=== PATIENT | male | born 1960 | race Caucasian/White ===

== ENCOUNTER → 2016-08-03 | Outpatient (CLI) | payer BC ==
[2016-08-03 08:50] LABS: CHOLESTEROL 139.29 mg/dL (0-200); Direct HDL 43 mg/dL (>40); TRIGLYCERIDES 133 mg/dL (<150)
[2016-08-03 09:00] LABS: DIRECT LDL 75 mg/dL (<100)
== END ==
LOC: OD 07:26
PROVIDERS: ATTEND Family Medicine Geriatric Medicine
DX: E11.9 Type 2 diabetes mellitus without complications (principal); E78.5 Hyperlipidemia, unspecified
CPT/HCPCS: 36415; 80061; 83036

== ENCOUNTER 2016-12-04 08:37 | Day surgery (SDC) | payer BC ==
[2016-12-04 08:55] LABS: HEMATOCRIT 49.9 % (37.9-51.0); HEMOGLOBIN 16.8 g/dL (13.5-17.0); HGB HCT DIFFERENCE 0.5; MEAN CORPUSCULAR HEMOGLOBIN 31.6 pg (27.0-33.4); MEAN CORPUSCULAR HGB CONC 33.6 g/dL (32.0-36.0); MEAN CORPUSCULAR VOLUME 94 fl (80-97); WHITE BLOOD COUNT 13.6 10^3/uL (4.0-10.5)
[2016-12-04 09:21] LABS: ANION GAP 12 (5-19); BLOOD UREA NITROGEN 10 mg/dL (7-20); CALCIUM 9.2 mg/dL (8.4-10.2); CARBON DIOXIDE 22 mmol/L (22-30); CHLORIDE 104 mmol/L (98-107); CREATININE RESULT 0.92 mg/dL (0.52-1.25); GLUCOSE 176 mg/dL (75-110); POTASSIUM 4.6 mmol/L (3.6-5.0); SODIUM 137.6 mmol/L (137-145)
[2016-12-04] MEDS ORDERED: ONDANSETRON HCL INJ/PF 4 MG/2 ML SDV ONE (10:57)
[2016-12-04] MEDS ORDERED: NALOXONE HCL INJ/PF 0.4 MG/1 ML SDV ONE (10:57)
[2016-12-04] MEDS ORDERED: FLUMAZENIL INJ 0.5 MG/5 ML VIAL IV ONE (10:58)
[2016-12-04] MEDS ORDERED: MIDAZOLAM 2 MG/2 ML INJ ONE (10:58)
[2016-12-04] MEDS ORDERED: GLUCAGON,HUMAN RECOMB 1 MG INJ ONE (10:59)
[2016-12-04] MEDS ORDERED: EPINEPHRINE INJ 1 MG/10 ML DISP.SYRIN ONE (10:59)
[2016-12-04] MEDS: MIDAZOLAM 2 MG/2 ML INJ ONE ×2 (11:00→11:04)
[2016-12-04] MEDS: FENTANYL CITRATE INJ/PF 100 MCG/2 ML AMPUL ONE ×2 (11:02→11:06)
--- NOTE | 2016-12-04 11:43 | Operative Report ---
Operative Report DATE OF SURGERY: 12/04/16 PREOPERATIVE DIAGNOSIS: History of colon polyp POSTOPERATIVE DIAGNOSIS: Right colon polyp OPERATION: Colonoscopy with snare polypectomy of right colon polyp SURGEON: LUNA GALVIN ANESTHESIA: Moderate Sedation TISSUE REMOVED OR ALTERED: right colon polyp COMPLICATIONS: None ESTIMATED BLOOD LOSS: Minimal INTRAOPERATIVE FINDINGS: half centimeter sessile polyp at the right colon four folds away from the cecum. PROCEDURE: Informed consent was obtained. Patient was brought to the endoscopy suite. IV sedation with Versed and fentanyl was administered. Digital rectal exam revealed no palpable perianal masses. Endoscope was passed via the patient's anus it was fed to the cecum. The bowel prep was good visualization was good. Cecum appeared normal. Four folds away from the cecum at the right colon there was 1/2 cm sessile polyp which was snare polypectomy and the specimen was retrieved. Remainder of the right colon transverse colon descending colon sigmoid colon and the rectum were all normal with the exception of scattered diverticuli on the left colon. Patient's colorectal anastomosis appeared well- healed. Patient tolerated procedure well with no apparent complications and was taken to the recovery area in stable condition. Assessment: right colon polyp status post snare polypectomy. Will follow up with the patient with the biopsy results.
--- NOTE | 2016-12-04 11:46 | PDOC DISCHARGE SUMMARY ---
Discharge Summary (SDC) - Discharge Final Diagnosis: Right colon Polyp Date of Surgery: 12/04/16 Discharge Date: 12/04/16 Condition: Good Forms: Sedation D/C Instructions, Discharge POC-Surgical Service Treatment or Instructions: Colonoscopy with polypectomy. May discharge patient home when met discharge criteria. Follow-up with me in 2 weeks. Hold Persantine for 5 days. May resume Persantine in 5 days if no bleeding per rectum. Referrals: LUNA GALVIN MD [ACTIVE STAFF] - 12/17/16 11:00 am Discharge Diet: As Tolerated Discharge Activity: Activity As Tolerated Report the Following to Your Physician Immediately: Increase in Pain, Unusual Bleeding
[2016-12-04 12:27] VITALS: BP 115/96
== END 2016-12-04 12:30 | disposition home or self-care (01) ==
LOC: END 08:37
PROVIDERS: ATTEND Surgery
PROC: 0DBF8ZX Excision of Right Large Intestine, Via Natural or Artificial Opening Endoscopic, Diagnostic (ICD-10-PCS; principal; 2016-12-04 10:30)
DX: D12.2 Benign neoplasm of ascending colon (principal); K57.30 Diverticulosis of large intestine without perforation or abscess without bleeding; Z80.0 Family history of malignant neoplasm of digestive organs; E11.9 Type 2 diabetes mellitus without complications; F17.210 Nicotine dependence, cigarettes, uncomplicated; Z79.82 Long term (current) use of aspirin; Z79.899 Other long term (current) drug therapy; Z79.84 Long term (current) use of oral hypoglycemic drugs; Z90.49 Acquired absence of other specified parts of digestive tract; Z85.828 Personal history of other malignant neoplasm of skin
CPT/HCPCS: 45385; 36415; 82962; 85027; 80048; 88305 ×2; J2250; J3010; J0171; J1610; J2310; J2405; J3490

== ENCOUNTER → 2017-02-01 | Outpatient (CLI) | payer BC ==
[2017-02-01 08:27] LABS: ABSOLUTE BASOPHILS # (AUTO) 0.1 10^3/uL (0.0-0.2); ABSOLUTE EOSINOPHILS # (AUTO) 0.3 10^3/uL (0.0-0.6); ABSOLUTE LYMPHOCYTES (AUTO) 2.8 10^3/uL (0.5-4.7); ABSOLUTE MONOCYTES (AUTO) 0.7 10^3/uL (0.1-1.4); ABSOLUTE NEUT (AUTO) 6.4 10^3/uL (1.7-8.2); BASOPHILS % (AUTO) 0.5 % (0-2); EOSINOPHILS % (AUTO) 2.6 % (0-6); HEMATOCRIT 46.5 % (37.9-51.0); HEMOGLOBIN 16.3 g/dL (13.5-17.0); HGB HCT DIFFERENCE 2.4; LYMPHOCYTES % (AUTO) 27.1 % (13-45); MEAN CORPUSCULAR HEMOGLOBIN 32.8 pg (27.0-33.4); MEAN CORPUSCULAR VOLUME 94 fl (80-97); MONOCYTES % (AUTO) 7.1 % (3-13); RED BLOOD COUNT 4.95 10^6/uL (4.35-5.55); RED CELL DISTRIBUTION WIDTH 12.5 % (11.5-14.0); SEGMENTED NEUTROPHILS % (AUTO) 62.7 % (42-78); WHITE BLOOD COUNT 10.2 10^3/uL (4.0-10.5)
[2017-02-01 08:58] LABS: ALANINE AMINOTRANSFERASE 23 U/L (21-72); ALBUMIN 3.9 g/dL (3.5-5.0); ALKALINE PHOSPHATASE 73 U/L (38-126); ANION GAP 10 (5-19); ASPARTATE AMINO TRANSFERASE 16 U/L (17-59); BILIRUBIN,DIRECT 0.4 mg/dL (0.0-0.4); BILIRUBIN,TOTAL 0.6 mg/dL (0.2-1.3); BLOOD UREA NITROGEN 14 mg/dL (7-20); CALCIUM 9.5 mg/dL (8.4-10.2); CARBON DIOXIDE 25 mmol/L (22-30); CHLORIDE 102 mmol/L (98-107); CHOLESTEROL 145.83 mg/dL (0-200); CREATININE RESULT 1.05 mg/dL (0.52-1.25); Direct HDL 45 mg/dL (>40); GLUCOSE 179 mg/dL (75-110); POTASSIUM 4.6 mmol/L (3.6-5.0); SODIUM 137.2 mmol/L (137-145); TOTAL PROTEIN 6.6 g/dL (6.3-8.2); TRIGLYCERIDES 164 mg/dL (<150)
[2017-02-01 09:08] LABS: DIRECT LDL 81 mg/dL (<100)
[2017-02-01 09:14] LABS: VLDL CHOLESTEROL 32.8 mg/dL (10-31)
[2017-02-02 15:37] LABS: CREATININE URINE 33.3 mg/dL (Not Estab.)
[2017-02-03 08:25] LABS: MICROALBUMIN URINE <3.0 ug/mL (Not Estab.)
== END ==
LOC: OD 07:19
PROVIDERS: ATTEND Family Medicine Geriatric Medicine
DX: E11.40 Type 2 diabetes mellitus with diabetic neuropathy, unspecified (principal); I10 Essential (primary) hypertension; E78.5 Hyperlipidemia, unspecified; Z79.899 Other long term (current) drug therapy
CPT/HCPCS: 36415; 80053; 80061; 82043; 82570; 83036; 84443; 85025

== ENCOUNTER → 2017-04-26 | Outpatient (CLI) | payer BC | LOC: OD 07:59 | PROVIDERS: ATTEND Family Medicine Geriatric Medicine | DX: E11.40 Type 2 diabetes mellitus with diabetic neuropathy, unspecified (principal); Z79.899 Other long term (current) drug therapy | CPT/HCPCS: 36415; 82607 ==

== ENCOUNTER → 2017-08-26 | Outpatient (CLI) | payer BC ==
[2017-08-26 08:29] LABS: ABSOLUTE EOSINOPHILS # (AUTO) 0.3 10^3/uL (0.0-0.6); ABSOLUTE LYMPHOCYTES (AUTO) 2.8 10^3/uL (0.5-4.7); ABSOLUTE MONOCYTES (AUTO) 0.7 10^3/uL (0.1-1.4); BASOPHILS % (AUTO) 0.5 % (0-2); EOSINOPHILS % (AUTO) 2.7 % (0-6); HEMATOCRIT 47.7 % (37.9-51.0); HEMOGLOBIN 16.1 g/dL (13.5-17.0); LYMPHOCYTES % (AUTO) 28.9 % (13-45); MEAN CORPUSCULAR HEMOGLOBIN 32.1 pg (27.0-33.4); MEAN CORPUSCULAR HGB CONC 33.8 g/dL (32.0-36.0); MEAN CORPUSCULAR VOLUME 95 fl (80-97); MONOCYTES % (AUTO) 6.7 % (3-13); PLATELET COUNT 267 10^3/uL (150-450); RED BLOOD COUNT 5.02 10^6/uL (4.35-5.55); SEGMENTED NEUTROPHILS % (AUTO) 61.2 % (42-78); TOTAL CELLS COUNTED % (AUTO) 100 %; WHITE BLOOD COUNT 9.9 10^3/uL (4.0-10.5)
[2017-08-26 08:59] LABS: ALANINE AMINOTRANSFERASE 26 U/L (21-72); ALBUMIN 4.1 g/dL (3.5-5.0); ALKALINE PHOSPHATASE 72 U/L (38-126); ANION GAP 10 (5-19); ASPARTATE AMINO TRANSFERASE 18 U/L (17-59); BILIRUBIN,DIRECT 0.4 mg/dL (0.0-0.4); BILIRUBIN,TOTAL 0.4 mg/dL (0.2-1.3); BLOOD UREA NITROGEN 15 mg/dL (7-20); CALCIUM 9.9 mg/dL (8.4-10.2); CARBON DIOXIDE 28 mmol/L (22-30); CHLORIDE 101 mmol/L (98-107); GLUCOSE 182 mg/dL (75-110); POTASSIUM 5.1 mmol/L (3.6-5.0); SODIUM 138.9 mmol/L (137-145); TOTAL PROTEIN 6.8 g/dL (6.3-8.2); TRIGLYCERIDES 151 mg/dL (<150)
[2017-08-26 09:10] LABS: DIRECT LDL 75 mg/dL (<100)
[2017-08-26 09:12] LABS: VLDL CHOLESTEROL 30.2 mg/dL (10-31)
[2017-08-27 13:39] LABS: CREATININE URINE 133.1 mg/dL (Not Estab.); MICROALBUMIN URINE <3.0 ug/mL (Not Estab.)
== END ==
LOC: OD 07:06
PROVIDERS: ATTEND Family Medicine Geriatric Medicine
DX: E11.40 Type 2 diabetes mellitus with diabetic neuropathy, unspecified (principal); I10 Essential (primary) hypertension; E78.5 Hyperlipidemia, unspecified; Z79.899 Other long term (current) drug therapy
CPT/HCPCS: 36415; 80053; 80061; 82043; 82570; 83036; 85025

== ENCOUNTER → 2017-09-04 | Outpatient (CLI) | payer BC ==
[2017-09-04 09:40] LABS: ALANINE AMINOTRANSFERASE 24 U/L (21-72); CHOLESTEROL 134.93 mg/dL (0-200); TRIGLYCERIDES 117 mg/dL (<150)
[2017-09-04 09:51] LABS: DIRECT LDL 68 mg/dL (<100)
== END ==
LOC: OD 07:43
PROVIDERS: ATTEND Family Medicine Geriatric Medicine
DX: E78.5 Hyperlipidemia, unspecified (principal); E11.40 Type 2 diabetes mellitus with diabetic neuropathy, unspecified; Z79.899 Other long term (current) drug therapy
CPT/HCPCS: 36415; 80061; 83036; 84460

== ENCOUNTER → 2017-10-25 | Outpatient (CLI) | payer BC ==
[2017-10-25 08:38] LABS: ALANINE AMINOTRANSFERASE 28 U/L (21-72); CHOLESTEROL 133.74 mg/dL (0-200); TRIGLYCERIDES 122 mg/dL (<150)
[2017-10-25 08:48] LABS: DIRECT LDL 66 mg/dL (<100)
== END ==
LOC: OD 07:36
PROVIDERS: ATTEND Family Medicine Geriatric Medicine
DX: E11.40 Type 2 diabetes mellitus with diabetic neuropathy, unspecified (principal); I10 Essential (primary) hypertension; E78.5 Hyperlipidemia, unspecified; Z29.9 Encounter for prophylactic measures, unspecified
CPT/HCPCS: 36415; 80061; 83036; 84460

== ENCOUNTER → 2017-12-23 | Outpatient (CLI) | payer BC ==
[2017-12-23 08:55] LABS: ANION GAP 12 (5-19); BLOOD UREA NITROGEN 15 mg/dL (7-20); CALCIUM 9.4 mg/dL (8.4-10.2); CARBON DIOXIDE 26 mmol/L (22-30); CHLORIDE 102 mmol/L (98-107); GLUCOSE 180 mg/dL (75-110); SODIUM 140.2 mmol/L (137-145)
== END ==
LOC: OD 07:23
PROVIDERS: ATTEND Family Medicine Geriatric Medicine
DX: I10 Essential (primary) hypertension (principal)
CPT/HCPCS: 36415; 80048

== ENCOUNTER → 2018-05-23 | Outpatient (CLI) | payer BC ==
[2018-05-23 08:05] LABS: ABSOLUTE BASOPHILS # (AUTO) 0.1 10^3/uL (0.0-0.2); ABSOLUTE EOSINOPHILS # (AUTO) 0.3 10^3/uL (0.0-0.6); ABSOLUTE LYMPHOCYTES (AUTO) 2.4 10^3/uL (0.5-4.7); ABSOLUTE MONOCYTES (AUTO) 0.6 10^3/uL (0.1-1.4); ABSOLUTE NEUT (AUTO) 5.5 10^3/uL (1.7-8.2); BASOPHILS % (AUTO) 0.7 % (0-2); HEMATOCRIT 46.3 % (37.9-51.0); HEMOGLOBIN 15.9 g/dL (13.5-17.0); LYMPHOCYTES % (AUTO) 27.2 % (13-45); MEAN CORPUSCULAR HEMOGLOBIN 32.2 pg (27.0-33.4); MEAN CORPUSCULAR HGB CONC 34.4 g/dL (32.0-36.0); MEAN CORPUSCULAR VOLUME 93 fl (80-97); MONOCYTES % (AUTO) 6.5 % (3-13); PLATELET COUNT 253 10^3/uL (150-450); RED BLOOD COUNT 4.96 10^6/uL (4.35-5.55); RED CELL DISTRIBUTION WIDTH 12.9 % (11.5-14.0); SEGMENTED NEUTROPHILS % (AUTO) 62.6 % (42-78); TOTAL CELLS COUNTED % (AUTO) 100 %; WHITE BLOOD COUNT 8.8 10^3/uL (4.0-10.5)
[2018-05-23 08:29] LABS: ALANINE AMINOTRANSFERASE 20 U/L (21-72); ANION GAP 11 (5-19); BLOOD UREA NITROGEN 16 mg/dL (7-20); CALCIUM 9.2 mg/dL (8.4-10.2); CARBON DIOXIDE 23 mmol/L (22-30); CHLORIDE 104 mmol/L (98-107); GLUCOSE 193 mg/dL (75-110); POTASSIUM 4.5 mmol/L (3.6-5.0); SODIUM 137.8 mmol/L (137-145); TRIGLYCERIDES 165 mg/dL (<150)
[2018-05-23 08:40] LABS: DIRECT LDL 88 mg/dL (<100)
[2018-05-24 16:37] LABS: CREATININE URINE 118.9 mg/dL (Not Estab.); MICROALBUMIN URINE <3.0 ug/mL (Not Estab.)
== END ==
LOC: OD 07:15
PROVIDERS: ATTEND Family Medicine Geriatric Medicine
DX: E78.5 Hyperlipidemia, unspecified (principal); E11.9 Type 2 diabetes mellitus without complications; I10 Essential (primary) hypertension; Z79.899 Other long term (current) drug therapy
CPT/HCPCS: 36415; 80048; 80061; 82043; 82570; 83036; 84460; 85025

== ENCOUNTER → 2018-08-22 | Outpatient (CLI) | payer BC ==
[2018-08-22 09:26] LABS: ALANINE AMINOTRANSFERASE 21 U/L (21-72); CHOLESTEROL 128.77 mg/dL (0-200); TRIGLYCERIDES 172 mg/dL (<150)
[2018-08-22 09:52] LABS: DIRECT LDL 76 mg/dL (<100)
[2018-08-22 10:04] LABS: VLDL CHOLESTEROL 34.4 mg/dL (10-31)
== END ==
LOC: OD 07:13
PROVIDERS: ATTEND Family Medicine Geriatric Medicine
DX: E11.40 Type 2 diabetes mellitus with diabetic neuropathy, unspecified (principal); E78.5 Hyperlipidemia, unspecified; Z79.899 Other long term (current) drug therapy
CPT/HCPCS: 36415; 80061; 83036; 84460

== ENCOUNTER → 2018-11-25 | Outpatient (CLI) | payer BC ==
[2018-11-25 08:35] LABS: ALANINE AMINOTRANSFERASE 23 U/L (21-72); CHOLESTEROL 174.33 mg/dL (0-200); TRIGLYCERIDES 155 mg/dL (<150)
[2018-11-25 08:47] LABS: DIRECT LDL 105 mg/dL (<100)
[2018-11-26 10:37] LABS: CREATININE URINE 113.1 mg/dL (Not Estab.); MICROALBUMIN URINE <3.0 ug/mL (Not Estab.)
== END ==
LOC: OD 07:13
PROVIDERS: ATTEND Family Medicine Geriatric Medicine
DX: E11.40 Type 2 diabetes mellitus with diabetic neuropathy, unspecified (principal); E78.5 Hyperlipidemia, unspecified; Z79.899 Other long term (current) drug therapy
CPT/HCPCS: 36415; 80061; 82043; 82570; 84460

== ENCOUNTER → 2019-01-26 | Outpatient (CLI) | payer BC ==
[2019-01-26 08:42] LABS: ASPARTATE AMINO TRANSFERASE 15 U/L (17-59); TRIGLYCERIDES 113 mg/dL (<150)
[2019-01-26 08:55] LABS: DIRECT LDL 106 mg/dL (<100)
== END ==
LOC: OD 07:19
PROVIDERS: ATTEND Family Medicine Geriatric Medicine
DX: E11.40 Type 2 diabetes mellitus with diabetic neuropathy, unspecified (principal); E78.5 Hyperlipidemia, unspecified; Z79.899 Other long term (current) drug therapy
CPT/HCPCS: 36415; 80061; 83036; 84450

== ENCOUNTER → 2019-04-24 | Outpatient (CLI) | payer BC ==
[2019-04-24 08:20] LABS: CHOLESTEROL 148.58 mg/dL (0-200); TRIGLYCERIDES 155 mg/dL (<150)
[2019-04-24 08:31] LABS: DIRECT LDL 82 mg/dL (<100)
[2019-04-25 13:36] LABS: CREATININE URINE 121.9 mg/dL (Not Estab.); MICROALBUMIN URINE <3.0 ug/mL (Not Estab.)
== END ==
LOC: OD 07:13
PROVIDERS: ATTEND Family Medicine Geriatric Medicine
DX: E78.5 Hyperlipidemia, unspecified (principal); E11.9 Type 2 diabetes mellitus without complications; I10 Essential (primary) hypertension; Z79.899 Other long term (current) drug therapy
CPT/HCPCS: 36415; 80061; 82043; 82570; 83036; 84460

== ENCOUNTER → 2019-07-24 | Outpatient (CLI) | payer BC ==
[2019-07-24 08:42] LABS: CHOLESTEROL 201.87 mg/dL (0-200); TRIGLYCERIDES 196 mg/dL (<150)
[2019-07-24 08:54] LABS: DIRECT LDL 133 mg/dL (<100); VLDL CHOLESTEROL 39.2 mg/dL (10-31)
== END ==
LOC: OD 07:22
PROVIDERS: ATTEND Family Medicine Geriatric Medicine
DX: E78.5 Hyperlipidemia, unspecified (principal); E11.21 Type 2 diabetes mellitus with diabetic nephropathy; Z79.899 Other long term (current) drug therapy
CPT/HCPCS: 36415; 80061; 83036; 84460

== ENCOUNTER → 2019-10-23 | Outpatient (CLI) | payer BC ==
[2019-10-23 08:26] LABS: ANION GAP 7 (5-19); BLOOD UREA NITROGEN 18 mg/dL (7-20); CALCIUM 10.1 mg/dL (8.4-10.2); CARBON DIOXIDE 27 mmol/L (22-30); CHLORIDE 102 mmol/L (98-107); GLUCOSE 176 mg/dL (75-110); POTASSIUM 4.3 mmol/L (3.6-5.0); TRIGLYCERIDES 170 mg/dL (<150)
[2019-10-23 08:37] LABS: DIRECT LDL 61 mg/dL (<100)
[2019-10-24 15:36] LABS: CREATININE URINE 185.7 mg/dL (Not Estab.); MICROALBUMIN URINE 6.5 ug/mL (Not Estab.)
== END ==
LOC: OD 07:17
PROVIDERS: ATTEND Family Medicine Geriatric Medicine
DX: E11.9 Type 2 diabetes mellitus without complications (principal); E78.5 Hyperlipidemia, unspecified; Z79.899 Other long term (current) drug therapy
CPT/HCPCS: 36415; 80048; 80061; 82043; 82570; 83036; 84460

== ENCOUNTER → 2020-01-22 | Outpatient (CLI) | payer BC ==
[2020-01-22 09:03] LABS: ANION GAP 9 (5-19); BLOOD UREA NITROGEN 14 mg/dL (7-20); CALCIUM 9.2 mg/dL (8.4-10.2); CARBON DIOXIDE 25 mmol/L (22-30); CHLORIDE 104 mmol/L (98-107); GLUCOSE 188 mg/dL (75-110); POTASSIUM 4.8 mmol/L (3.6-5.0)
== END ==
LOC: OD 07:03
PROVIDERS: ATTEND Family Medicine Geriatric Medicine
DX: E11.9 Type 2 diabetes mellitus without complications (principal); Z79.899 Other long term (current) drug therapy
CPT/HCPCS: 36415; 80048; 82043; 82570; 83036

== ENCOUNTER → 2020-04-22 | Outpatient (CLI) | payer BC ==
[2020-04-22 08:44] LABS: CHOLESTEROL 131.68 mg/dL (0-200); TRIGLYCERIDES 176 mg/dL (<150)
[2020-04-22 08:55] LABS: DIRECT LDL 68 mg/dL (<100)
[2020-04-22 08:59] LABS: VLDL CHOLESTEROL 35.2 mg/dL (10-31)
[2020-04-23 15:37] LABS: CREATININE URINE 245.1 mg/dL (Not Estab.); MICROALBUMIN URINE 11.5 ug/mL (Not Estab.)
== END ==
LOC: OD 07:11
PROVIDERS: ATTEND Family Medicine Geriatric Medicine
DX: E11.21 Type 2 diabetes mellitus with diabetic nephropathy (principal); E78.5 Hyperlipidemia, unspecified; I10 Essential (primary) hypertension; Z79.899 Other long term (current) drug therapy
CPT/HCPCS: 36415; 80061; 82043; 82570; 83036; 84460

== ENCOUNTER 2020-06-15 05:15 | Day surgery (SDC) | payer BC ==
[2020-06-10 13:54] LABS: HEMATOCRIT 46.9 % (37.9-51.0); HEMOGLOBIN 16.1 g/dL (13.5-17.0); MEAN CORPUSCULAR HGB CONC 34.4 g/dL (32.0-36.0); MEAN CORPUSCULAR VOLUME 93 fl (80-97); PLATELET COUNT 261 10^3/uL (150-450); RED BLOOD COUNT 5.04 10^6/uL (4.35-5.55); RED CELL DISTRIBUTION WIDTH 12.9 % (11.5-14.0); WHITE BLOOD COUNT 10.9 10^3/uL (4.0-10.5)
[~2020-06-15 05:15] MED LIST: ACETAMINOPHEN 325 MG TABLET PO PRN; LACTATED RINGERS 1000 ML IV PRN; LIDOCAINE 0.5% INJ-PF (5 MG/ML) 50 ML SDV SUBCUT PRN
[2020-06-15] MEDS ORDERED: PROPOFOL INJ 200 MG/20 ML VIAL IV ONE ×2 (06:35→07:01)
[2020-06-15] MEDS ORDERED: MEPERIDINE HCL/PF INJ 25 MG/1 ML DISP.SYRIN IV PRN (07:36)
[2020-06-15] MEDS ORDERED: DIPHENHYDRAMINE HCL 50 MG/ML VIAL IV PRN (07:36)
[2020-06-15] MEDS ORDERED: PROMETHAZINE HCL INJ 25 MG/1 ML VIAL IV PRN ×2 (07:36)
[2020-06-15] MEDS ORDERED: ONDANSETRON HCL INJ/PF 4 MG/2 ML SDV IV PRN (07:36)
--- NOTE | 2020-06-15 08:26 | Discharge Summary ---
Discharge Summary (SDC) - Discharge Final Diagnosis: Multiple colon polyps Date of Surgery: 06/15/20 Discharge Date: 06/15/20 Condition: Good Forms: ASU Anesthesia D/C Instruction, Discharge POC-Surgical Service Treatment or Instructions: [address] [address] POST ENDOSCOPY DISCHARGE INSTRUCTIONS 1. Diet: Start clear liquids that a regular diet as tolerated. 2. Resume all preoperative medications. All oral anticoagulants and aspirins can be resumed 24 hours after procedure. 3. If a polypectomy was performed some bleeding per rectum may occur. This should stop within 3 days. If not, please contact the office. 4. If you had a colonoscopy you may experience some bloating and delayed return of normal bowel function for several days, your regular bowel movement pattern should resume within a week. 5. Please contact [facility] at to make an appointment with Dr. Gabriel for 1 to 3 weeks following procedure. 6. If you have any questions or concerns regarding your care,treatment plan or follow up, please contact our office. 7. Per clinical guidelines we recommend you undergo a repeat colonoscopy in 2-3 years. Referrals: CAMPOS GABRIEL MD [ACTIVE STAFF] - Discharge Activity: Activity As Tolerated Home Care Assistance: None Needed Report the Following to Your Physician Immediately: Shortness of Breath, Increase in Pain, Fever over 101 Degrees
--- NOTE | 2020-06-15 08:32 | Operative Report ---
Operative Report DATE OF SURGERY: 06/15/20 PREOPERATIVE DIAGNOSIS: 1. History of colon polyps. 2. Sigmoid diverticulosis POSTOPERATIVE DIAGNOSIS: Same with multiple polyps OPERATION: 1. Total colonoscopy to cecum with photodocumentation. 2. Hot snare polypectomy of multiple polyps at 80 cm, 45 cm, 20 cm, and 10 cm from the anal verge SURGEON: CAMPOS WHITMORE ANESTHESIA: LMAC TISSUE REMOVED OR ALTERED: Multiple polyps COMPLICATIONS: None INTRAOPERATIVE FINDINGS: See below PROCEDURE: The patient was taken the preop holding her to the main operating room where LMAC anesthesia was induced. Placed in the left lateral cubitus position. Knees flexed. Surgical plan and surgical timeout were conducted. A rectal exam was performed with the lubricated index finger. There is no evidence of palpable anal canal pathology. The posterior surface of the prostate gland was smooth. The flexible adult colonoscope was advanced to the anal rectal canal all the way to the cecum. Visualization of cecal anatomy including orifice to the appendix confirmed cecal intubation. There was a moderate amount of liquid and particulate stool in the right colon which required aspiration. The scope was withdrawn through the length the colon checking the mucosa carefully. There were moderate diverticulosis of the sigmoid colon. The cecum and ascending colon were grossly unremarkable. The proximal transverse colon unremarkable with no evidence of polyps, however at approximately 80 cm from anal verge was a polyp, pedunculated, photographed, and removed with a hot snare device and labeled 80 cm polyp. Cautery site was stable. Labeled specimen A At 45 cm from the anal verge were 2 small polyps, both removed with a hot snare device, with cautery site showing appropriate cauterization artifact. Specimen was labeled as such and sent to pathology. Labeled specimen B Again scope was brought back through the sigmoid colon, multiple diverticulosis with no evidence of stricture noted. There was no evidence of bleeding. At approximately 20 cm in the anal verge was a small polyp. One was removed with a cold forceps device and labeled 20cm polyp, specimen C. At approximately 10 cm from the anal verge were several small polyps in several of these were removed with a hot snare device and labeled specimen C. Cautery site stable. Scope was drawn from the anal canal. Patient tolerated procedure well, taken to recovery room stable condition. Per surveillance guidelines, patient be an appropriate candidate for follow-up colonoscopy in 2 to 3 years pending final path report.
[2020-06-15 10:24] VITALS: BP 138/95
== END 2020-06-15 09:03 | disposition home or self-care (01) ==
LOC: OROUT 05:15
PROVIDERS: ATTEND Surgery
DX: Z12.11 Encounter for screening for malignant neoplasm of colon (principal); D12.4 Benign neoplasm of descending colon; K57.30 Diverticulosis of large intestine without perforation or abscess without bleeding; Z86.010 Personal history of colon polyps; Z80.0 Family history of malignant neoplasm of digestive organs; I12.9 Hypertensive chronic kidney disease with stage 1 through stage 4 chronic kidney disease, or unspecified chronic kidney disease; E11.22 Type 2 diabetes mellitus with diabetic chronic kidney disease; N18.30 Chronic kidney disease, stage 3 unspecified; E11.42 Type 2 diabetes mellitus with diabetic polyneuropathy; Z01.812 Encounter for preprocedural laboratory examination; Z20.822 Contact with and (suspected) exposure to COVID-19; F17.210 Nicotine dependence, cigarettes, uncomplicated; E78.5 Hyperlipidemia, unspecified; E66.9 Obesity, unspecified; L57.0 Actinic keratosis; Z98.84 Bariatric surgery status; Z79.82 Long term (current) use of aspirin; Z79.899 Other long term (current) drug therapy; Z90.49 Acquired absence of other specified parts of digestive tract; Z79.84 Long term (current) use of oral hypoglycemic drugs; Z86.73 Personal history of transient ischemic attack (TIA), and cerebral infarction without residual deficits; Z85.828 Personal history of other malignant neoplasm of skin; Z79.02 Long term (current) use of antithrombotics/antiplatelets
CPT/HCPCS: 45380; 45385; 36415; 82962; 85027; 88305 ×2; 00812; U0003; J2704; C9803; 812; 87635